=== PATIENT | male | born 1980 ===

== ENCOUNTER 2018-11-21 14:56 | Outpatient (CLI) | payer SELFPAY | END 2018-11-21 14:57 | disposition EMS.NT | LOC: EMS 14:56 | PROVIDERS: ATTEND Surgery | DX: S51.812A Laceration without foreign body of left forearm, initial encounter (principal); W01.0XXA Fall on same level from slipping, tripping and stumbling without subsequent striking against object, initial encounter; Y92.481 Parking lot as the place of occurrence of the external cause ==